=== PATIENT | female | born 1985 | race Caucasian/White ===

== ENCOUNTER → 2017-10-11 | Outpatient (CLI) | payer BC ==
[~2017-10-11] MED LIST: APRI28 PO; LXP/10 PO; POTA540T PO; TRAMTAB5 PO
--- NOTE | 2017-10-11 10:16 | DIAGNOSTIC IMAGING REPORT ---
KUB HISTORY: N20.0 Nephrolithiasis [id number] COMPARISON: KUB 08/03/2016. FINDINGS: The bowel gas pattern is unremarkable. There are no dilated loops of small bowel to suggest an obstruction. The right renal shadow is mostly obscured by overlying bowel gas. Multiple punctate bilateral renal calculi are again noted. The majority of the calcifications within the deep pelvis remain stable and favor phleboliths. However, there is a new 2 calcification within the left deep pelvis. No right ureteral calculi. No pneumoperitoneum or pneumatosis. IMPRESSION: 1. A new 2 mm calcification within the left deep pelvis. This favors a new phlebolith. However, if the patient is complaining of left flank pain this could represent a distal left ureteral stone. 2. Bilateral nephrolithiasis. Electronically signed by: Lalo Jaeger M.D. 10/11/2017 10:14 AM Dictated Date/Time: 10/11/2017 10:12 AM
== END | disposition home or self-care (01) ==
LOC: C.RAD 09:43
PROVIDERS: ATTEND Urology
DX: N20.0 Calculus of kidney (principal)

== ENCOUNTER 2018-03-24 15:24 | Emergency (ER) | payer BC, OTHER ==
[~2018-03-24] VITALS: Ht 157.5 cm; Wt 53.6 kg
[2018-03-24 15:29] VITALS: TEMP 36.7; Ht 157.5 cm; Wt 53.6 kg
[2018-03-24] MEDS ORDERED: DIPHTHERIA/TETANUS/PERTUSSIS 0.5 ML SYR/VIAL IM. ONE (16:00)
[2018-03-24] MEDS ORDERED: LIDOCAINE 1% BUFFERED INJ 5 ML VIAL INFIL ONE (16:00)
[2018-03-24] MEDS ORDERED: CEPH500C PO (16:08)
[2018-03-24 16:39] VITALS: BP 114/71; PULSE 75; O2SAT 99
--- NOTE | 2018-03-24 16:40 | EMERGENCY ROOM VISIT NOTE ---
History First contact with patient: 15:38 Chief Complaint: FOREIGNBODY ANY BODY PART Stated Complaint: FISH HOOK IN FINGER History of Present Illness The patient is a 32 year old female who presents to the Emergency Room with complaints of a fishhook embedded in her left third fingertip. The patient reports that she was reaching into a shed to get a garden tool when she grabbed an old fishing net with a lure stuck in it. The patient rates his discomfort a 5 out of 10. The patient is uncertain of her last tetanus immunization. The patient is right-hand dominant. Review of Systems 10 system review was performed and was negative except for pertinent positives and negatives as indicated in history of present illness Past Medical/Surgical History Medical Problems: (1) Kidney stones (2) Scott's neuroma Family History FH: cancer FH: hypertension FH: kidney disease Social History Smoking Status: Never Smoker Alcohol Use: occasionally Marital Status: Occupation Status: employed Current/Historical Medications Scheduled Cephalexin Monohydrate (Keflex), 500 MG PO TID Escitalopram Oxalate (Lexapro), 15 MG PO HS Ethinyl Estrad/Desogestrel (Apri), 1 TAB PO HS Potassium Citrate (Alkalinizer (Potassium Citrate), 1 TAB PO BID Scheduled PRN Tramadol/Acetaminophen (Ultracet), 1-2 TABS PO Q6 PRN for Pain Physical Exam Vital Signs Date Time Temp Pulse Resp B/P (MAP) Pulse Ox O2 Delivery O2 Flow Rate FiO2 03/24/18 15:29 36.7 80 16 110/71 96 Room Air Physical Exam CONSTITUTIONAL: Healthy and well nourished. Alert and oriented X 3 with positive affect. Patient does not appear in any acute distress. HEENT: Normocephalic, atraumatic. Pupils equal, round and reactive. MUSCULOSKELETAL: Examination shows a large fishing lure embedded within the digital pad of the finger. No active bleeding is noted. INTEGUMENTARY: No rash or other significant dermatologic conditions noted. NEUROLOGIC: Left third fingertip is sensory intact. Medical Decision & Procedures Medications Administered Medications (Trade) Dose Ordered Sig/[place] Route Start Time Stop Time Status Last Admin Dose Admin Diphtheria/ Pertussis/Tetanus Vacc (Adacel Inj) 0.5 ml ONCE ONCE IM. 03/24/18 16:00 03/24/18 16:01 DC 03/24/18 16:00 0.5 ML Procedure [place] removal was performed under digital block anesthesia after receiving verbal consent from the patient. The procedure was also performed by our physician staff assistant student under my direct supervision. Using buffered 1% lidocaine without epinephrine, good digital block anesthesia was administered. The area was then painted with iodine and allowed to dry. Using needle drivers , the hook was able to be removed in a retrograde fashion. The wound was then irrigated with normal saline, and a bacitracin bandage was applied. ED Course Patient history and physical exam were performed. Nurse's notes were reviewed. Vital signs were reviewed and were normal. Foreign body removal was performed under digital block anesthesia. Patient was encouraged to keep the wound clean and covered with an antibiotic ointment and dressing. The patient will empirically be treated with Keflex 500 mg 3 times daily times 5 days. She was instructed to watch for any signs of developing infection. Ice and elevation for swelling. Ibuprofen or Tylenol as needed for additional pain relief. The patient was happy with plan of care, voiced understanding of all discharge instructions, and denied any pain at the time of discharge. Medical Decision Medication Reconcilliation Current Medication List: was personally reviewed by la Blood Pressure Screening Patient's blood pressure: Normal blood pressure Impression Primary Impression: Fish hook injury of left middle finger Departure Information Dispostion Home / Self-Care Prescriptions Cephalexin Monohydrate (Keflex) 500 Mg Cap 500 MG PO TID for 5 Days, #15 CAP Prov: Chase Sidhu PA 03/24/18 Forms HOME CARE DOCUMENTATION FORM, IMPORTANT VISIT INFORMATION Patient Instructions My [facility] Additional Instructions Complete all Keflex antibiotics as prescribed. Keep wound clean and covered with an antibiotic ointment and BandAid until it heals. Motrin or Tylenol if needed for additional pain relief. Return for any developing infection. Problem Qualifiers Primary Impression: Fish hook injury of left middle finger Encounter type: initial encounter Qualified Codes: S69.92XA - Unspecified injury of left wrist, hand and finger(s), initial encounter
[2018-03-24] MEDS ORDERED: LXP/20 PO (16:44)
== END 2018-03-24 16:40 | disposition home or self-care (01) ==
LOC: C.EDB 15:25 → C.EDD 16:40
DX: S69.92XA Unspecified injury of left wrist, hand and finger(s), initial encounter (principal); W45.8XXA Other foreign body or object entering through skin, initial encounter